=== PATIENT | male | born 1965 | race Asian ===

== ENCOUNTER 2019-06-10 19:59 | Emergency (ER) | payer BC ==
[~2019-06-10] VITALS: Ht 165.1 cm; Wt 71.7 kg
[2019-06-10 20:04] VITALS: BP 131/89; Ht 165.1 cm; Wt 71.7 kg
== END 2019-06-10 20:21 | disposition home or self-care (01) ==
LOC: ED 19:59
DX: J06.9 Acute upper respiratory infection, unspecified (principal)